=== PATIENT | female | born 1945 | race Caucasian/White ===

== ENCOUNTER → 2016-04-29 | Outpatient (CLI) | payer MEDICARE, BC, OTHER ==
[~2016-04-29] MED LIST: AMLO25TA PO; COUM2.5T11 PO; IBUP200C PO; PERC5TAB6 PO; TYLE325T5 PO
--- NOTE | 2016-04-29 09:52 | REPMRS ---
Patient History The patient states she has not had a clinical breast exam in over a year. Patient is postmenopausal. No known family history of cancer. Digital Woman Screen Mammo: April 29, 2016 - Exam #: [id number] Bilateral CC and MLO view(s) were taken. Technologist: Eden Mallory, Technologist Prior study comparison: May 09, 2014, digital woman screen mammo performed at [facility]. 2011, bilateral bilat screen digital mammo, performed at [facility]. FINDINGS: The breast tissue is heterogeneously dense. This may lower the sensitivity of mammography. There is a moderate amount of heterogeneously dense fibroglandular tissue which is fairly symmetric. There is no interval development of dominant mass, architectural distortion, or clustered microcalcification typical of malignancy. There has been no change in the appearance of the mammogram from the prior studies. ASSESSMENT: BI-RADS/ACR category 1 mammogram. Negative. Recommendation Routine screening mammogram of both breasts in 1 year (for women over age 40). This mammogram was interpreted with the aid of an FDA-approved computer-aided dectection system. Electronically Signed By: Lauro Davis MD 04/29/16 [id number]
== END ==
LOC: M WHC 09:01
PROVIDERS: ATTEND Family Medicine
DX: Z12.31 Encounter for screening mammogram for malignant neoplasm of breast (principal)

== ENCOUNTER → 2016-06-03 | Outpatient (REF) | payer MEDICARE, BC, OTHER | END | disposition home or self-care (01) | LOC: M SFHCPLAZ 13:03 | PROVIDERS: ATTEND Family Medicine | DX: N18.3 Chronic kidney disease, stage 3 (moderate) (principal); Z53.8 Procedure and treatment not carried out for other reasons ==

== ENCOUNTER → 2016-09-30 | Outpatient (CLI) | payer MEDICARE, BC, OTHER ==
[~2016-09-30] VITALS: Ht 154.9 cm; Wt 77.1 kg
[~2016-09-30] MED LIST changes: +ALLE180T33 PO; +FLON1SPR; +LIDOCAINE 2% INJ 100 MG/5 ML SDV (FOR ANES.) As Ordered ONE; +LIQUID POLIBAR PLUS 105% w/v 1900ML BTL As Ordered ONE; +NS 1,000 ML IV SCH; +PROPOFOL 200 MG/20 ML VIAL As Ordered ONE; +VALS1TAB47 PO; +[UNRECOGNIZED DRUG - CODE] PO; +ePHEDrine SULFATE 25 MG/5 ML(5MG/ML) SYRINGE As Ordered ONE
--- NOTE | 2016-09-30 09:04 | ROOR ---
Patient Name: Michaelle Nuñez Procedure Date: 09/30/2016 8:32 AM Date of : 1945 Age: 71 Room: [facility] Gender: Female Note Status: Finalized Procedure: Colonoscopy to 35 cms - incomplete procedure. Indications: Screening for colorectal malignant neoplasm Providers: Bruce Solano MD Referring MD: Ray Alcantara DO Requesting Provider: Medicines: Monitored Anesthesia Care Complications: No immediate complications. Procedure: Pre-Anesthesia Assessment: - The heart rate, respiratory rate, oxygen saturations, blood pressure, adequacy of pulmonary ventilation, and response to care were monitored throughout the procedure. The Colonoscope was introduced through the anus and advanced to the sigmoid colon. The colonoscopy was performed without difficulty. The patient tolerated the procedure well. The quality of the bowel preparation was good. Findings: The perianal and digital rectal examinations were normal. Multiple small and large-mouthed diverticula were found in the recto-sigmoid colon and sigmoid colon. The exam was otherwise without abnormality. Scope advanced to 35 cms. Not able to advance to cecum due to extensive diverticulosis, and narrowing. No pathology seen. Impression: - Diverticulosis in the recto-sigmoid colon and in the sigmoid colon. - The examination was otherwise normal. Recommendation: - Discharge patient to home. - Continue present medications. - High fiber diet. - Return to referring physician. - The findings and recommendations were discussed with the patient's family. Bruce Solano MD Bruce Solano MD 09/30/2016 9:03:52 AM This report has been signed electronically. Number of Addenda: 0 Note Initiated On: 09/30/2016 8:32 AM Estimated Blood Loss: Estimated blood loss: none.
[2016-09-30 09:24] VITALS: BP 137/70
--- NOTE | 2016-09-30 14:57 | REP ---
BARIUM ENEMA, AIR CONTRAST: The procedure was performed under the direct supervision of Dr. Sheffield. The images were reviewed with Dr. Sheffield. The patient is status post incomplete colonoscopy. The piggyback clerk film shows no organomegaly or pathological masses. The intestinal gas pattern is nonspecific. There are surgical clips noted in the right upper quadrant. There is levoscoliosis. There are degenerative changes of the spine. The patient is status post bilateral hip arthroplasty. Liquid barium and air were instilled into the colon and retrograde flow of the barium and air mixture. In the sigmoid colon, there are multiple diverticula identified. There is a stricture in the sigmoid colon, which may be neoplastic versus inflammatory. 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 There are a few mobile filling defects seen throughout the examination consistent with small stool particles from incomplete cleansing. There is free flow of contrast to the cecum. The appendix is visualized. The remainder of the colon is unremarkable. IMPRESSION: In the sigmoid, there are multiple diverticula identified. There is a stricture identified which may be neoplastic versus inflammatory. There is a fistula extending from the area of the stricture to the distal part of the rectosigmoid. 5 minutes and 17 seconds of fluoroscopy time was utilized for this procedure. Reviewed by ROEL Monroe 09/30/2016 05:08 PEdited and Signed by Alfred Sheffield MD 09/30/2016 05:18 P
== END | disposition home or self-care (01) ==
LOC: M OPP 07:18
PROVIDERS: ATTEND Internal Medicine Gastroenterology
DX: Z12.11 Encounter for screening for malignant neoplasm of colon (principal); K57.30 Diverticulosis of large intestine without perforation or abscess without bleeding; I10 Essential (primary) hypertension; M19.90 Unspecified osteoarthritis, unspecified site; M54.9 Dorsalgia, unspecified; Z78.0 Asymptomatic menopausal state; G47.30 Sleep apnea, unspecified; R06.83 Snoring; Z79.82 Long term (current) use of aspirin; Z79.899 Other long term (current) drug therapy
CPT/HCPCS: 74280; G0121

== ENCOUNTER → 2016-10-10 | Outpatient (CLI) | payer MEDICARE, BC, OTHER ==
[~2016-10-10] MED LIST changes: -LIDOCAINE 2% INJ 100 MG/5 ML SDV (FOR ANES.) As Ordered ONE; -LIQUID POLIBAR PLUS 105% w/v 1900ML BTL As Ordered ONE; -NS 1,000 ML IV SCH; -PROPOFOL 200 MG/20 ML VIAL As Ordered ONE; -ePHEDrine SULFATE 25 MG/5 ML(5MG/ML) SYRINGE As Ordered ONE
== END ==
LOC: M LAB 11:20
PROVIDERS: ATTEND Surgery
DX: D37.4 Neoplasm of uncertain behavior of colon (principal)

== ENCOUNTER → 2016-10-24 | Outpatient (CLI) | payer MEDICARE, BC, OTHER ==
[~2016-10-24] MED LIST changes: -COUM2.5T11 PO; +COUM2.5T17 PO; +GASTROGRAFIN SOLUTION 30ML (Q9963) As Ordered ONE; -IBUP200C PO; +IBUP200C10 PO; +ISOVUE-370 76% 100ML VIAL (Q9967) As Ordered ONE; +PERC5TAB12 PO; -PERC5TAB6 PO
--- NOTE | 2016-10-24 15:54 | REP ---
Clinical: Diverticulosis. Technique: Contrast enhanced CT of the abdomen and pelvis using oral and 100 ml Isovue 370 intravenous contrast material with precontrast images of the abdomen as well as coronal and sagittal re-formations. Findings: Lung bases demonstrate chronic change. Visualized heart and pericardium normal. Liver, spleen, pancreas, bilateral adrenal glands and kidneys are normal. The patient is status post cholecystectomy. The enteric system is without obstruction or obvious acute inflammatory process. Normal terminal ileum and appendix are identified in the right lower quadrant. Colonic diverticulosis noted. Specifically, there is redundancy to the sigmoid colon within the pelvis and significant sigmoid diverticulosis. Further evaluation of the sigmoid colon is limited due to the lack of intraluminal contrast. Evaluation of the bladder and uterus/adnexa are limited due to metallic streak artifact from hip prostheses. No obvious ascites. No free air. Periaortic retroperitoneal lymph nodes are somewhat prominent and measure up to approximately 17 mm and are otherwise nonspecific. Atherosclerotic changes of the aorta and vasculature noted without aneurysm. Musculoskeletal structures demonstrate degenerative changes without focal osseous abnormality. Impression: 1. The sigmoid colon is redundant and demonstrates significant diverticulosis. Further evaluation is limited due to the lack of intraluminal contrast and should be corroborated with colonoscopy. 2. Few mildly prominent periaortic retroperitoneal lymph nodes up to 17 mm are otherwise nonspecific and may warrant followup. Signed by Tien Navarrete MD 10/24/2016 03:46 P
== END ==
LOC: M RAD 12:44
PROVIDERS: ATTEND Surgery
DX: K57.30 Diverticulosis of large intestine without perforation or abscess without bleeding (principal); D37.4 Neoplasm of uncertain behavior of colon
CPT/HCPCS: 74178; Q9963; Q9967

== ENCOUNTER → 2017-02-17 | Outpatient (REF) | payer MEDICARE, BC, OTHER ==
[~2017-02-17] MED LIST changes: -GASTROGRAFIN SOLUTION 30ML (Q9963) As Ordered ONE; -ISOVUE-370 76% 100ML VIAL (Q9967) As Ordered ONE
[2017-02-17 18:22] LABS: BASO % 0.2 % (0.0-1.0); EOS % 0.2 % (0.0-3.0); IMMATURE GRANULOCYTE % 1.2 % (0-0); LYMPH # 2.4 10^3/uL (1.5-4.5); LYMPH % 40.7 % (24.0-44.0); MEAN CORPUSCULAR HEMOGLOBIN 32.2 pg (27.0-33.0); MEAN CORPUSCULAR HGB CONC 32.2 g/dl (32.0-36.5); MONO # 0.5 10^3/uL (0.0-0.8); MONO % 8.9 % (0.0-5.0); NEUTROPHILS # 2.9 10^3/uL (1.8-7.7); NEUTROPHILS % 48.8 % (36.0-66.0); PLATELET COUNT, AUTOMATED 152 10^3/uL (150-450); RED CELL DISTRIBUTION WIDTH 12.9 % (11.5-14.5); WHITE BLOOD COUNT 5.9 10^3/uL (4.0-10.0)
[2017-02-17 18:47] LABS: ALBUMIN 4.1 GM/DL (3.2-5.2); ALBUMIN/GLOBULIN RATIO 0.91 (1.00-1.93); ALKALINE PHOSPHATASE 132 U/L (45-117); ALT/SGPT 14 U/L (12-78); ANION GAP 7 MEQ/L (8-16); AST/SGOT 13 U/L (7-37); BILIRUBIN,TOTAL 0.4 MG/DL (0.2-1.0); BLOOD UREA NITROGEN 13 MG/DL (7-18); CALCIUM LEVEL 9.8 MG/DL (8.8-10.2); CARBON DIOXIDE LEVEL 28 MEQ/L (21-32); CHLORIDE LEVEL 103 MEQ/L (98-107); CHOLESTEROL LEVEL 182 MG/DL (<200); CREATININE FOR GFR 0.99 MG/DL (0.55-1.02); GLUCOSE, FASTING 101 MG/DL (83-110); POTASSIUM SERUM 3.9 MEQ/L (3.5-5.1); SODIUM LEVEL 138 MEQ/L (136-145); TOTAL PROTEIN 8.6 GM/DL (6.4-8.2); TRIGLYCERIDES LEVEL 189 MG/DL (<150); URIC ACID 5.3 MG/DL (2.6-6.0)
[2017-02-17 18:48] LABS: VITAMIN B12 LEVEL 473 PG/ML
[2017-02-17 18:49] LABS: FOLATE 11.4 NG/ML
[2017-02-19 09:58] LABS: ALBUMIN 4.63 GM/DL (3.29-5.55); ALBUMIN % 53.8 % (55.8-66.1); GAMMA GLOBULIN % 19.6 % (11.1-18.8)
== END ==
LOC: M SFHCPLAZ 15:04
PROVIDERS: ATTEND Family Medicine
DX: R76.8 Other specified abnormal immunological findings in serum (principal); M13.0 Polyarthritis, unspecified; Z86.2 Personal history of diseases of the blood and blood-forming organs and certain disorders involving the immune mechanism; K56.699 Other intestinal obstruction unspecified as to partial versus complete obstruction; J30.2 Other seasonal allergic rhinitis; J30.89 Other allergic rhinitis; Z91.89 Other specified personal risk factors, not elsewhere classified; Z79.82 Long term (current) use of aspirin; Z79.899 Other long term (current) drug therapy; Z23 Encounter for immunization
CPT/HCPCS: 36415; 80053; 80061; 82607; 82746; 84165; 84166; 84550; 85025; 90662; G0008; G0463

== ENCOUNTER → 2018-12-08 | Outpatient (REF) | payer MEDICARE, BC, OTHER ==
[~2018-12-08] MED LIST changes: +ASPI-525 PO; -IBUP200C10 PO; +IBUP200C25 PO; -VALS1TAB47 PO; +VALS1TAB67 PO; -[UNRECOGNIZED DRUG - CODE] PO
== END ==
LOC: M SFHCCLAY 10:59
PROVIDERS: ATTEND Family Medicine
DX: Z86.2 Personal history of diseases of the blood and blood-forming organs and certain disorders involving the immune mechanism (principal); R63.4 Abnormal weight loss; N18.3 Chronic kidney disease, stage 3 (moderate); R68.89 Other general symptoms and signs; Z13.1 Encounter for screening for diabetes mellitus; E55.9 Vitamin D deficiency, unspecified; Z12.11 Encounter for screening for malignant neoplasm of colon; Z53.9 Procedure and treatment not carried out, unspecified reason

== ENCOUNTER → 2018-12-15 | Outpatient (CLI) | payer MEDICARE, BC, OTHER ==
--- NOTE | 2018-12-15 12:28 | REP ---
Low-dose lung screening CT of the chest: There are no comparisons. The study is performed without IV contrast. The images are presented at lung windowing only. There are no nodules or masses. There are no infiltrates or pleural effusions. Impression: Category one low-dose lung screening chest CT. The incidence of malignancy is less than 1%. Depending on risk factors consider annual follow-up low-dose lung screening CT. Electronically Signed by Alfred Cobb MD 12/15/2018 12:20 P
== END ==
LOC: M RAD 10:37
PROVIDERS: ATTEND Family Medicine
DX: Z87.891 Personal history of nicotine dependence (principal)

== ENCOUNTER → 2019-08-16 | Outpatient (REF) | payer MEDICARE, BC, OTHER ==
[2019-08-16 11:34] LABS: HEMATOCRIT 36.1 % (36.0-47.0); HEMOGLOBIN 11.2 g/dl (12.0-15.5); MEAN CORPUSCULAR HEMOGLOBIN 29.6 pg (27.0-33.0); MEAN CORPUSCULAR VOLUME 95.5 fl (80.0-96.0); RED BLOOD COUNT 3.78 10^6/uL (4.00-5.40); WHITE BLOOD COUNT 7.9 10^3/uL (4.0-10.0)
[2019-08-16 11:43] LABS: CALCIUM LEVEL 9.2 MG/DL (8.8-10.2); CHOLESTEROL RISK RATIO 2.973 (<5); CREATININE FOR GFR 1.22 MG/DL (0.55-1.30); POTASSIUM SERUM 4.3 MEQ/L (3.5-5.1)
[2019-08-16 12:00] LABS: PLATELET COUNT, AUTOMATED 91 10^3/uL (150-450)
== END ==
LOC: M SFHCCLAY 08:09
PROVIDERS: ATTEND Family Medicine
DX: Z86.2 Personal history of diseases of the blood and blood-forming organs and certain disorders involving the immune mechanism (principal); E78.5 Hyperlipidemia, unspecified; I10 Essential (primary) hypertension; N18.3 Chronic kidney disease, stage 3 (moderate); E55.9 Vitamin D deficiency, unspecified

== ENCOUNTER → 2019-08-23 | Outpatient (REF) | payer MEDICARE, BC, OTHER ==
[2019-08-23 19:37] LABS: BASO % 0.3 % (0.0-1.0); EOS % 0.1 % (0.0-3.0); HEMATOCRIT 37.8 % (36.0-47.0); HEMOGLOBIN 11.4 g/dl (12.0-15.5); LYMPH # 2.8 10^3/uL (1.5-5.0); LYMPH % 36.6 % (24.0-44.0); MEAN CORPUSCULAR HEMOGLOBIN 28.6 pg (27.0-33.0); MEAN CORPUSCULAR HGB CONC 30.2 g/dl (32.0-36.5); MONO % 13.3 % (0.0-5.0); NEUTROPHILS # 3.8 10^3/uL (1.5-8.5); NEUTROPHILS % 49.2 % (36.0-66.0); RED BLOOD COUNT 3.98 10^6/uL (4.00-5.40); WHITE BLOOD COUNT 7.7 10^3/uL (4.0-10.0)
[2019-08-23 19:38] LABS: PLATELET COUNT, AUTOMATED 90 10^3/uL (150-450)
[2019-08-23 19:40] LABS: CALCIUM LEVEL 9.3 MG/DL (8.8-10.2); CREATININE FOR GFR 1.3 MG/DL (0.55-1.30); GLOMERULAR FILTRATION RATE 42.7 (>39); PERCENT SATURATION 26.8 % (13.2-45.0); POTASSIUM SERUM 4.3 MEQ/L (3.5-5.1)
== END ==
LOC: M SFHCCLAY 11:47
PROVIDERS: ATTEND Family Medicine
DX: D64.9 Anemia, unspecified (principal); D69.6 Thrombocytopenia, unspecified; R94.4 Abnormal results of kidney function studies

== ENCOUNTER → 2019-09-16 | Outpatient (REF) | payer MEDICARE, BC, OTHER ==
[2019-09-16 18:23] LABS: ALBUMIN 3.7 GM/DL (3.2-5.2); BILIRUBIN,TOTAL 0.3 MG/DL (0.2-1.0); CALCIUM LEVEL 8.8 MG/DL (8.8-10.2); CREATININE FOR GFR 1.33 MG/DL (0.55-1.30); GLOMERULAR FILTRATION RATE 41.6 (>39); POTASSIUM SERUM 4.5 MEQ/L (3.5-5.1); TOTAL PROTEIN 8.4 GM/DL (6.4-8.2)
[2019-09-16 18:33] LABS: BASO % 0.2 % (0.0-1.0); EOS % 0.1 % (0.0-3.0); HEMATOCRIT 35.4 % (36.0-47.0); HEMOGLOBIN 10.9 g/dl (12.0-15.5); LYMPH # 2.5 10^3/uL (1.5-5.0); LYMPH % 29.6 % (24.0-44.0); MEAN CORPUSCULAR HEMOGLOBIN 29.3 pg (27.0-33.0); MEAN CORPUSCULAR HGB CONC 30.8 g/dl (32.0-36.5); MEAN CORPUSCULAR VOLUME 95.2 fl (80.0-96.0); MONO # 1.4 10^3/uL (0.0-0.8); MONO % 16.8 % (0.0-5.0); NEUTROPHILS # 4.5 10^3/uL (1.5-8.5); NEUTROPHILS % 52.8 % (36.0-66.0); RED BLOOD COUNT 3.72 10^6/uL (4.00-5.40); WHITE BLOOD COUNT 8.4 10^3/uL (4.0-10.0)
[2019-09-16 18:42] LABS: PLATELET COUNT, AUTOMATED 78 10^3/uL (150-450)
[2019-09-16 18:44] LABS: HEMATOCRIT 35.4 % (36.0-47.0)
== END ==
LOC: M SFHCCLAY 11:20
PROVIDERS: ATTEND Family Medicine
DX: D64.9 Anemia, unspecified (principal); D69.6 Thrombocytopenia, unspecified

== ENCOUNTER → 2019-10-08 | Outpatient (CLI) | payer MEDICARE, BC, OTHER ==
--- NOTE | 2019-10-08 14:18 | REP ---
REASON FOR EXAM: Possible myeloma, elevated serum protein levels. Prior examination is 11/01/2014. AP and lateral views of the skull shows a new 8 mm size focal area of lucency in the left anterior frontal bone. AP and lateral views of the cervical spine show marked and severe degenerative changes throughout with marked hypertrophic degenerative change seen involving the facet and uncovertebral joints bilaterally but particularly on the left and all increased from the prior exam. No lytic or blastic osseous lesions seem to have developed. AP and lateral views of the thoracolumbar spine again show significant degenerative changes throughout with partial syndesmophyte/marginal osteophyte formation along the right side of the lumbar spine bilaterally involving the thoracic spine status quo. There is a levoconvex lumbar curve status quo. No evidence of interim development of a lytic or blastic osseous lesion. AP pelvis again shows bilateral hip prostheses. There is no evidence of interim development of a lytic or blastic osseous lesion. AP examination of the right femur shows no evidence of interim development of a lytic or blastic osseous lesion. AP examination of the left femur shows no evidence of interim development of lytic or blastic osseous lesion. AP examination of the right humerus shows no interim development of a lytic or blastic osseous lesion. AP examination of the left humerus shows no evidence of interim development of a lytic or blastic osseous lesion. IMPRESSION: 1. There is a new focal area of lucency seen in the left anterior frontal bone region as described above. The exact etiology is uncertain and needs to be correlated clinically with appropriate followup. 2. There are advanced degenerative changes seen throughout the spine. These have increased from the prior exam. Electronically Signed by Pradip Hunt DO 10/08/2019 03:05 P
== END ==
LOC: M LAB 11:29
PROVIDERS: ATTEND Family Medicine
DX: R77.9 Abnormality of plasma protein, unspecified (principal); M47.812 Spondylosis without myelopathy or radiculopathy, cervical region; Z96.643 Presence of artificial hip joint, bilateral; M51.35 Other intervertebral disc degeneration, thoracolumbar region; M47.815 Spondylosis without myelopathy or radiculopathy, thoracolumbar region

== ENCOUNTER → 2019-10-15 | Outpatient (REF) | payer MEDICARE, BC, OTHER ==
[2019-10-15 17:06] LABS: C REACTIVE PROTEIN QUANTITATIV 8.62 MG/DL (0.00-0.30); LDH LACTATE DEHYDROGENASE 174 U/L (84-246); TOTAL PROTEIN 8.7 GM/DL (6.4-8.2)
[2019-10-19 13:04] LABS: ALBUMIN % 49.4 % (55.8-66.1); ALPHA-1-GLOBULINS 0.44 GM/DL (0.17-0.41); ALPHA-2-GLOBULINS 0.82 GM/DL (0.42-0.99); ALPHA-2-GLOBULINS % 9.4 % (7.1-11.8); BETA-1-GLOBULINS % 5.7 % (4.7-7.2); BETA-2-GLOBULINS 0.47 GM/DL (0.19-0.55); BETA-2-GLOBULINS % 5.4 % (3.2-6.5); GAMMA GLOBULIN % 25.1 % (11.1-18.8); GAMMA GLOBULINS 2.18 GM/DL (0.65-1.58)
[2019-10-19 17:08] LABS: BETA 2 MICROGLOBULIN 4.8 mg/L (0.6-2.4); FREE KAPPA LIGHT CHAINS SERUM 64.3 mg/L (3.3-19.4); KAPPA/LAMBDA RATIO SERUM 1.15 (0.26-1.65)
== END ==
LOC: M SFHCCLAY 12:58
PROVIDERS: ATTEND Family Medicine
DX: R77.9 Abnormality of plasma protein, unspecified (principal)

== ENCOUNTER → 2020-02-08 | Outpatient (REF) | payer MEDICARE, BC, OTHER ==
[2020-02-08 15:58] LABS: BASO % 0.2 % (0.0-1.0); EOS % 0.1 % (0.0-3.0); HEMATOCRIT 35.6 % (36.0-47.0); HEMOGLOBIN 10.8 g/dl (12.0-15.5); LYMPH # 2.8 10^3/uL (1.5-5.0); LYMPH % 30.5 % (24.0-44.0); MEAN CORPUSCULAR HGB CONC 30.3 g/dl (32.0-36.5); MEAN CORPUSCULAR VOLUME 95.7 fl (80.0-96.0); MONO # 1.5 10^3/uL (0.0-0.8); MONO % 16.8 % (0.0-5.0); NEUTROPHILS # 4.7 10^3/uL (1.5-8.5); RED BLOOD COUNT 3.72 10^6/uL (4.00-5.40)
[2020-02-08 15:59] LABS: CALCIUM LEVEL 9.1 MG/DL (8.8-10.2); CREATININE FOR GFR 1.28 MG/DL (0.55-1.30); GLOMERULAR FILTRATION RATE 43.5 (>39); POTASSIUM SERUM 4.3 MEQ/L (3.5-5.1)
[2020-02-08 16:41] LABS: PLATELET COUNT, AUTOMATED 69 10^3/uL (150-450)
== END ==
LOC: M SFHCPLAZ 12:17
PROVIDERS: ATTEND Family Medicine
DX: D69.6 Thrombocytopenia, unspecified (principal); N18.30 Chronic kidney disease, stage 3 unspecified; Z86.2 Personal history of diseases of the blood and blood-forming organs and certain disorders involving the immune mechanism; Z23 Encounter for immunization
CPT/HCPCS: 36415; 80048; 85025; 85049; 85055; 90682; G0008

== ENCOUNTER → 2020-06-28 | Outpatient (REF) | payer MEDICARE, BC, OTHER ==
[~2020-06-28] MED LIST changes: -ASPI-525 PO; +ASPI325T48 PO; +PRAV40TA2 PO; +QC A650T3 PO
[2020-06-28 18:32] LABS: BASO % 0.3 % (0.0-1.0); EOS % 0.3 % (0.0-3.0); HEMATOCRIT 38.9 % (36.0-47.0); HEMOGLOBIN 12.1 g/dl (12.0-15.5); LYMPH # 3.3 10^3/uL (1.5-5.0); LYMPH % 34.6 % (24.0-44.0); MEAN CORPUSCULAR HEMOGLOBIN 29.8 pg (27.0-33.0); MEAN CORPUSCULAR HGB CONC 31.1 g/dl (32.0-36.5); MEAN CORPUSCULAR VOLUME 95.8 fl (80.0-96.0); MONO # 1.5 10^3/uL (0.0-0.8); MONO % 15.7 % (2.0-8.0); NEUTROPHILS # 4.6 10^3/uL (1.5-8.5); NEUTROPHILS % 48.5 % (36.0-66.0); RED BLOOD COUNT 4.06 10^6/uL (4.00-5.40)
[2020-06-28 18:55] LABS: PLATELET COUNT, AUTOMATED 57 10^3/uL (150-450); WHITE BLOOD COUNT 9.5 10^3/uL (4.0-10.0)
[2020-06-28 19:05] LABS: ALBUMIN 4.3 GM/DL (3.2-5.2); BILIRUBIN,TOTAL 0.3 MG/DL (0.2-1.0); CALCIUM LEVEL 9.3 MG/DL (8.8-10.2); CREATININE FOR GFR 1.43 MG/DL (0.55-1.30); GLOMERULAR FILTRATION RATE 38.2 (>39); PERCENT SATURATION 15.6 % (13.2-45.0); POTASSIUM SERUM 4.2 MEQ/L (3.5-5.1); TOTAL PROTEIN 8.7 GM/DL (6.4-8.2)
== END ==
LOC: M LABDRAWC 16:35
PROVIDERS: ATTEND Internal Medicine Hematology & Oncology
DX: L98.9 Disorder of the skin and subcutaneous tissue, unspecified (principal); C93.10 Chronic myelomonocytic leukemia not having achieved remission; D46.9 Myelodysplastic syndrome, unspecified

== ENCOUNTER → 2020-09-14 | Outpatient (CLI) | payer MEDICARE, BC, OTHER ==
--- NOTE | 2020-09-14 14:33 | REPVR ---
PROCEDURE INFORMATION: Exam: CT Chest Without Contrast; Diagnostic Exam date and time: 09/14/2020 1:33 PM Age: 75 years old Clinical indication: Hypoxia; Additional info: History of nicotine dependence, hypoxemia, COPD unspecified TECHNIQUE: Imaging protocol: Diagnostic computed tomography of the chest without contrast. Coronal and sagittal reformats were created and reviewed. 3D rendering (Not supervised by radiologist): MIP and/or 3D reconstructed images were created by the technologist. Radiation optimization: All CT scans at this facility use at least one of these dose optimization techniques: automated exposure control; mA and/or kV adjustment per patient size (includes targeted exams where dose is matched to clinical indication); or iterative reconstruction. COMPARISON: 1. LOW DOSE LUNG SCREENING CT 12/15/2018 10:47:48 AM 2. CR PORTABLE CHEST X-RAY 08/17/2014 5:45 AM FINDINGS: Thyroid: Unremarkable as visualized. Lungs: The trachea is unremarkable. Evaluation of the lungs is limited by motion. Severe bilateral centrilobular and paraseptal upper lung predominant emphysema. Mild multifocal bilateral peripheral reticulation and interlobular septal thickening compatible with scarring is redemonstrated. No pulmonary mass, suspicious nodule, consolidation, or edema. Pleural spaces: No pleural effusion, mass or calcification. No pneumothorax. Heart: Heavy coronary arterial atherosclerotic calcification. Heart size is within normal limits. No pericardial effusion. Mediastinal space: The esophagus is unremarkable. No mediastinal mass. Pulmonary arteries: Redemonstration of bilateral central pulmonary arterial dilation. The main pulmonary arterial trunk measures 4 cm in diameter. Aorta: Severe aortic atherosclerosis. Fusiform dilatation of the descending thoracic aorta measuring up to 3.7 cm in diameter. Other arteries: Widespread atherosclerotic calcifications. Lymph nodes: No enlarged lymph nodes. Gallbladder and bile ducts: Cholecystectomy. Spleen: Splenic calcification present consistent with remote granulomatous disease. Bones/joints: Severe multilevel degenerative spine disease. Bilateral glenohumeral osteoarthritis. Bilateral glenohumeral joint loose bodies. Bifid right anterior 4th rib. Soft tissues: Unremarkable. IMPRESSION: 1. Severe pulmonary emphysema. 2. Redemonstration of central pulmonary arterial dilation. The findings are compatible with pulmonary hypertension. 3. Fusiform dilatation of the descending thoracic aorta measuring up to 3.7 cm in diameter. 4. Atherosclerosis. Coronary artery disease. Electronically signed by: Adán Nath On 09/14/2020 14:33:27 PM
== END ==
LOC: M RAD 13:16
PROVIDERS: ATTEND Nurse Practitioner Family
DX: Z12.2 Encounter for screening for malignant neoplasm of respiratory organs (principal); J44.9 Chronic obstructive pulmonary disease, unspecified; R09.02 Hypoxemia; Z79.891 Long term (current) use of opiate analgesic

== ENCOUNTER → 2020-11-03 | Outpatient (REF) | payer MEDICARE, BC, OTHER ==
[2020-11-03 16:12] LABS: BASO % 0.4 % (0.0-1.0); EOS % 0.3 % (0.0-3.0); HEMATOCRIT 37.4 % (36.0-47.0); HEMOGLOBIN 11.5 g/dl (12.0-15.5); LYMPH # 2.6 10^3/uL (1.5-5.0); LYMPH % 35.5 % (24.0-44.0); MEAN CORPUSCULAR HEMOGLOBIN 29.9 pg (27.0-33.0); MEAN CORPUSCULAR HGB CONC 30.7 g/dl (32.0-36.5); MEAN CORPUSCULAR VOLUME 97.1 fl (80.0-96.0); MONO # 1.3 10^3/uL (0.0-0.8); NEUTROPHILS # 3.4 10^3/uL (1.5-8.5); PLATELET COUNT, AUTOMATED 78 10^3/uL (150-450); RED BLOOD COUNT 3.85 10^6/uL (4.00-5.40); WHITE BLOOD COUNT 7.4 10^3/uL (4.0-10.0)
[2020-11-03 16:40] LABS: ALBUMIN 3.9 GM/DL (3.2-5.2); BILIRUBIN,TOTAL 0.3 MG/DL (0.2-1.0); CREATININE FOR GFR 1.26 MG/DL (0.55-1.30); GLOMERULAR FILTRATION RATE 44.2 (>39); POTASSIUM SERUM 5.3 MEQ/L (3.5-5.1); TOTAL PROTEIN 8.6 GM/DL (6.4-8.2)
== END ==
LOC: M LABDRAWC 15:44
PROVIDERS: ATTEND Specialist
DX: D46.9 Myelodysplastic syndrome, unspecified (principal)

== ENCOUNTER → 2021-01-19 | Outpatient (CLI) | payer MEDICARE, BC, OTHER ==
[2021-01-19 14:26] LABS: CALCIUM LEVEL 9.7 MG/DL (8.8-10.2); CHOLESTEROL RISK RATIO 2.34 (<5); CREATININE FOR GFR 1.19 MG/DL (0.55-1.30); GLOMERULAR FILTRATION RATE 47.2 (>39); POTASSIUM SERUM 4.9 MEQ/L (3.5-5.1)
[2021-01-19 14:33] LABS: TOTAL 25(OH) VITAMIN D 48.2 NG/ML (30.0-100.0)
== END ==
LOC: M PLALAB 10:51
PROVIDERS: ATTEND Family Medicine
DX: E87.5 Hyperkalemia (principal); I10 Essential (primary) hypertension; E55.9 Vitamin D deficiency, unspecified; E78.5 Hyperlipidemia, unspecified; Z23 Encounter for immunization
CPT/HCPCS: 36415; 80048; 80061; 82306; 90682; G0008

== ENCOUNTER → 2021-08-09 | Outpatient (REF) | payer MEDICARE, BC, OTHER ==
[2021-08-09 15:57] LABS: BASO # 0.1 10^3/uL (0.0-0.2); BASO % 0.4 % (0.0-1.0); EOS % 0.1 % (0.0-3.0); HEMATOCRIT 30.3 % (36.0-47.0); HEMOGLOBIN 9.7 g/dl (12.0-15.5); LYMPH # 2.1 10^3/uL (1.5-5.0); LYMPH % 17.3 % (24.0-44.0); MEAN CORPUSCULAR HEMOGLOBIN 31.2 pg (27.0-33.0); MEAN CORPUSCULAR VOLUME 97.4 fl (80.0-96.0); MONO # 1.5 10^3/uL (0.0-0.8); MONO % 12.1 % (2.0-8.0); NEUTROPHILS # 8.4 10^3/uL (1.5-8.5); NEUTROPHILS % 69.1 % (36.0-66.0); RED BLOOD COUNT 3.11 10^6/uL (4.00-5.40); WHITE BLOOD COUNT 12.1 10^3/uL (4.0-10.0)
[2021-08-09 15:58] LABS: PLATELET COUNT, AUTOMATED 79 10^3/uL (150-450)
[2021-08-09 16:32] LABS: ALBUMIN 3.2 GM/DL (3.2-5.2); BILIRUBIN,TOTAL 0.5 MG/DL (0.2-1.0); CALCIUM LEVEL 9.8 MG/DL (8.8-10.2); CREATININE FOR GFR 1.14 MG/DL (0.55-1.30); GLOMERULAR FILTRATION RATE 49.5 (>39); PERCENT SATURATION 16.9 % (13.2-45.0); POTASSIUM SERUM 4.8 MEQ/L (3.5-5.1); TOTAL PROTEIN 7.7 GM/DL (6.4-8.2)
== END ==
LOC: M LABDRAWC 15:31
PROVIDERS: ATTEND Specialist
DX: D46.9 Myelodysplastic syndrome, unspecified (principal)

== ENCOUNTER → 2021-08-31 | Outpatient (REF) | payer MEDICARE, BC, OTHER ==
[2021-08-31 15:58] LABS: BASO % 0.2 % (0.0-1.0); EOS % 0.2 % (0.0-3.0); HEMOGLOBIN 10.7 g/dl (12.0-15.5); LYMPH # 3.2 10^3/uL (1.5-5.0); LYMPH % 25.8 % (24.0-44.0); MEAN CORPUSCULAR HGB CONC 30.6 g/dl (32.0-36.5); MONO % 13.9 % (2.0-8.0); NEUTROPHILS # 7.2 10^3/uL (1.5-8.5); NEUTROPHILS % 58.4 % (36.0-66.0); RED BLOOD COUNT 3.57 10^6/uL (4.00-5.40); WHITE BLOOD COUNT 12.3 10^3/uL (4.0-10.0)
[2021-08-31 16:27] LABS: MONO # 1.7 10^3/uL (0.0-0.8); PLATELET COUNT, AUTOMATED 81 10^3/uL (150-450)
== END ==
LOC: M LABDRAWC 15:35
PROVIDERS: ATTEND Specialist
DX: D46.9 Myelodysplastic syndrome, unspecified (principal); D64.9 Anemia, unspecified

== ENCOUNTER → 2021-09-20 | Outpatient (CLI) | payer MEDICARE, BC, OTHER ==
[2021-09-20 15:42] LABS: BASO % 0.1 % (0.0-1.0); EOS % 0.1 % (0.0-3.0); HEMATOCRIT 27.4 % (36.0-47.0); HEMOGLOBIN 8.7 g/dl (12.0-15.5); LYMPH # 2.5 10^3/uL (1.5-5.0); LYMPH % 26.5 % (24.0-44.0); MEAN CORPUSCULAR HEMOGLOBIN 30.5 pg (27.0-33.0); MEAN CORPUSCULAR HGB CONC 31.8 g/dl (32.0-36.5); MEAN CORPUSCULAR VOLUME 96.1 fl (80.0-96.0); MONO # 1.8 10^3/uL (0.0-0.8); MONO % 19.7 % (2.0-8.0); NEUTROPHILS # 4.9 10^3/uL (1.5-8.5); NEUTROPHILS % 52.8 % (36.0-66.0); PLATELET COUNT, AUTOMATED 101 10^3/uL (150-450); RED BLOOD COUNT 2.85 10^6/uL (4.00-5.40); WHITE BLOOD COUNT 9.3 10^3/uL (4.0-10.0)
[2021-09-20 16:06] LABS: ALBUMIN 1.9 GM/DL (3.2-5.2); BILIRUBIN,TOTAL 0.6 MG/DL (0.2-1.0); CREATININE FOR GFR 1.06 MG/DL (0.55-1.30); GLOMERULAR FILTRATION RATE 53.8 (>39); POTASSIUM SERUM 3.9 MEQ/L (3.5-5.1); TOTAL PROTEIN 6.5 GM/DL (6.4-8.2)
== END ==
LOC: M PLALAB 11:39
PROVIDERS: ATTEND Physician Assistant
DX: D46.9 Myelodysplastic syndrome, unspecified (principal)

== ENCOUNTER → 2021-10-09 | Outpatient (CLI) | payer MEDICARE, BC, OTHER ==
[2021-10-09 17:17] LABS: BASO % 0.3 % (0.0-1.0); EOS % 0.1 % (0.0-3.0); HEMATOCRIT 27.7 % (36.0-47.0); HEMOGLOBIN 8.4 g/dl (12.0-15.5); LYMPH # 2.9 10^3/uL (1.5-5.0); LYMPH % 25.7 % (24.0-44.0); MEAN CORPUSCULAR HEMOGLOBIN 30.3 pg (27.0-33.0); MEAN CORPUSCULAR HGB CONC 30.3 g/dl (32.0-36.5); MONO # 1.4 10^3/uL (0.0-0.8); MONO % 12.1 % (2.0-8.0); NEUTROPHILS # 6.8 10^3/uL (1.5-8.5); NEUTROPHILS % 60.7 % (36.0-66.0); PLATELET COUNT, AUTOMATED 119 10^3/uL (150-450); RED BLOOD COUNT 2.77 10^6/uL (4.00-5.40); WHITE BLOOD COUNT 11.2 10^3/uL (4.0-10.0)
[2021-10-09 17:45] LABS: CREATININE FOR GFR 1.14 MG/DL (0.55-1.30); GLOMERULAR FILTRATION RATE 49.5 (>39); POTASSIUM SERUM 5.7 MEQ/L (3.5-5.1)
[2021-10-09 17:46] LABS: ALBUMIN 2.2 GM/DL (3.2-5.2); BILIRUBIN,TOTAL 0.4 MG/DL (0.2-1.0); CALCIUM LEVEL 9.1 MG/DL (8.8-10.2); MAGNESIUM LEVEL 2.6 MG/DL (1.8-2.4); TOTAL PROTEIN 7.3 GM/DL (6.4-8.2)
[2021-10-09 17:51] LABS: PTH INTACT 39.7 PG/ML (18.5-88.0); TOTAL 25(OH) VITAMIN D 56.4 NG/ML (30.0-100.0)
== END ==
LOC: M PLALAB 15:27
PROVIDERS: ATTEND Physician Assistant
DX: D64.9 Anemia, unspecified (principal); Z79.899 Other long term (current) drug therapy

== ENCOUNTER → 2021-11-08 | Outpatient (REF) | payer MEDICARE, OTHER ==
[2021-11-08 18:42] LABS: BASO % 0.4 % (0.0-1.0); EOS % 0.1 % (0.0-3.0); HEMATOCRIT 29.1 % (36.0-47.0); HEMOGLOBIN 9.1 g/dl (12.0-15.5); LYMPH % 35.9 % (24.0-44.0); MEAN CORPUSCULAR HEMOGLOBIN 30.1 pg (27.0-33.0); MEAN CORPUSCULAR HGB CONC 31.3 g/dl (32.0-36.5); MEAN CORPUSCULAR VOLUME 96.4 fl (80.0-96.0); MONO # 1.1 10^3/uL (0.0-0.8); MONO % 12.4 % (2.0-8.0); NEUTROPHILS # 4.3 10^3/uL (1.5-8.5); NEUTROPHILS % 50.6 % (36.0-66.0); PLATELET COUNT, AUTOMATED 117 10^3/uL (150-450); RED BLOOD COUNT 3.02 10^6/uL (4.00-5.40); WHITE BLOOD COUNT 8.5 10^3/uL (4.0-10.0)
[2021-11-08 18:56] LABS: BILIRUBIN,TOTAL 0.2 MG/DL (0.2-1.0); CALCIUM LEVEL 8.2 MG/DL (8.8-10.2); CREATININE FOR GFR 1.02 MG/DL (0.55-1.30); GLOMERULAR FILTRATION RATE 56.2 (>39); POTASSIUM SERUM 4.5 MEQ/L (3.5-5.1); TOTAL PROTEIN 6.5 GM/DL (6.4-8.2)
== END ==
LOC: M LABDRAWC 16:21
PROVIDERS: ATTEND Specialist
DX: D46.9 Myelodysplastic syndrome, unspecified (principal)

== ENCOUNTER → 2021-12-11 | Outpatient (CLI) | payer MEDICARE, BC, OTHER ==
[~2021-12-11] MED LIST changes: +IRON15CH PO
== END ==
LOC: M RAD 13:38
PROVIDERS: ATTEND Internal Medicine Pulmonary Disease
DX: J43.9 Emphysema, unspecified (principal); Z87.891 Personal history of nicotine dependence

== ENCOUNTER → 2021-12-25 | Outpatient (REF) | payer MEDICARE, BC, OTHER ==
[2021-12-25 17:47] LABS: BASO # 0.1 10^3/uL (0.0-0.2); BASO % 0.4 % (0.0-1.0); HEMATOCRIT 29.5 % (36.0-47.0); HEMOGLOBIN 9.2 g/dl (12.0-15.5); LYMPH % 28.5 % (24.0-44.0); MEAN CORPUSCULAR HEMOGLOBIN 31.5 pg (27.0-33.0); MEAN CORPUSCULAR HGB CONC 31.2 g/dl (32.0-36.5); MONO % 13.3 % (2.0-8.0); NEUTROPHILS # 7.9 10^3/uL (1.5-8.5); NEUTROPHILS % 56.6 % (36.0-66.0); PLATELET COUNT, AUTOMATED 119 10^3/uL (150-450); RED BLOOD COUNT 2.92 10^6/uL (4.00-5.40); WHITE BLOOD COUNT 13.9 10^3/uL (4.0-10.0)
[2021-12-25 17:55] LABS: MONO # 1.8 10^3/uL (0.0-0.8)
== END ==
LOC: M LABDRAWC 17:19
PROVIDERS: ATTEND Specialist
DX: D64.9 Anemia, unspecified (principal)